=== PATIENT | female | born 1930 | race Caucasian/White ===

== ENCOUNTER → 2016-11-03 | Outpatient (CLI) | payer MEDICARE, BC ==
[~2016-11-03] MED LIST: ACHD5005 PO; ALPR.5T PO; AMLO5TAB2 PO; ASCO100T6 PO; ASP325TEC PO; ASP81TEC PO; ASPI-933 PO; ASPI325T PO; CALC-20 PO; CALC-6 PO; CHOL2000 PO; CLOP75TA PO; CYAN100053 IJ; ESCT10T PO; FAMO10TA43 PO; FAMO20TA5 PO; FLUT16SP22 NS; HYDR-2997 PO; IBAN3DIS2 IV; LEVO88TA26 PO; LVT.1T PO; MTP25TSR PO; MULT1CAP27 PO; NF-FLON16G; NITR0.6T5 PO; NTR.4SL SL; OLME20TA21 PO; OLME40TA14 PO; OMEP40CA36 PO; OXYC-12 PO; PANT40SU PO; PNT40TEC PO; POLY17PO23 PO; SENN1TAB76 PO; SUCR1TAB PO; VITA1CAP59 PO; VITAMIN B12 INJ; VITAMIN C PO; [UNRECOGNIZED DRUG - OTHER] PO
--- NOTE | 2016-11-05 09:08 | ECHOCARDIOGRAPHY REPORT ---
DATE OF SERVICE: 11/03/2016 ECHOCARDIOGRAPHY REPORT ORDERING PHYSICIAN: Dr. Nogueira. PRIMARY CARE PHYSICIAN: Dr. Ponce. CLINICAL DIAGNOSIS: Near syncope. MEASUREMENTS: LV diameter diastolic 4. IVS thickness, diastolic 1.5. LVPW thickness, diastolic 1.3. Left atrium 3.6. Aortic root 3.6. DESCRIPTION: Two dimensional echocardiography shows normal global left ventricular systolic function with normal regional wall motion. Aortic, mitral and tricuspid valve leaflets show good leaflet excursion. There is mild aortic valve sclerosis and calcification. There is no significant pericardial effusion. Doppler imaging shows mild mitral and tricuspid regurgitation. There is no Doppler evidence of any significant valvular stenosis. Pulmonary artery systolic pressure is estimated to be approximately 35 mmHg. Mitral inflow is consistent with grade I diastolic dysfunction of the left ventricle. There is no evidence of any significant intracardiac shunt on this transthoracic echocardiographic study. Inferior vena cava is of normal size and appears mostly collapsed on this study. CONCLUSIONS: 1. Normal global left ventricular systolic function with an ejection fraction of approximately 65%. 2. Mild concentric left ventricular hypertrophy. 3. Mild mitral and tricuspid regurgitation. 4. Mild diastolic dysfunction of left ventricle. 5. Mild aortic valve sclerosis without evidence of significant valvular stenosis. 6. Pulmonary artery systolic pressure is estimated to be 30 to 35 mmHg. Job ID: [id number] DocumentID: [id number] Dictated Date: 11/04/2016 17:06:43 Network Security Consultant Date: 11/04/2016 22:58:19 Dictated By: RONNIE NOGUEIRA MD, MA, FACP, FACC,
== END ==
LOC: CARD 08:05
PROVIDERS: ATTEND Internal Medicine Cardiovascular Disease
DX: R55 Syncope and collapse (principal); I25.10 Atherosclerotic heart disease of native coronary artery without angina pectoris; I65.23 Occlusion and stenosis of bilateral carotid arteries; I10 Essential (primary) hypertension; I95.1 Orthostatic hypotension
CPT/HCPCS: 93306

== ENCOUNTER 2016-11-12 06:46 | Observation (INO) | payer MEDICARE, BC ==
[~2016-11-12] VITALS: Ht 165.1 cm; Wt 69.1 kg
[2016-11-12] VITALS (7 sets, daily range): BP systolic 123–184; BP diastolic 60–77
[2016-11-12 06:59] LABS: BASOPHILS % (AUTO) 0 % (0-10); EOSINOPHILS # (AUTO) 0.1 10^3/uL (0.0-0.3); EOSINOPHILS % (AUTO) 2 % (0-10); LYMPHOCYTES # (AUTO) 1.1 X 10^3 (1.0-4.0); LYMPHOCYTES % (AUTO) 19 % (12-44); MEAN CORPUSCULAR HEMOGLOBIN 31 PG (25-34); MEAN CORPUSCULAR HGB CONC 34 G/DL (32-36); MEAN CORPUSCULAR VOLUME 92 FL (80-99); MEAN PLATELET VOLUME 10.2 FL (7.4-10.4); MONOCYTES # (AUTO) 0.6 X 10^3 (0.0-1.0); MONOCYTES % (AUTO) 10 % (0-12); NEUTROPHILS # (AUTO) 3.9 X 10^3 (1.8-7.8); NEUTROPHILS % (AUTO) 68 % (42-75); PLATELET COUNT 292 10^3/uL (130-400); RED BLOOD COUNT 4.44 10^6/uL (4.35-5.85); RED CELL DISTRIBUTION WIDTH 13.5 % (10.0-14.5); WHITE BLOOD COUNT 5.7 10^3/uL (4.3-11.0)
--- NOTE | 2016-11-12 07:00 | ED General ---
General Chief Complaint: Dizziness/Syncope Stated Complaint: LIGHTHEADED,DIZZY Source of Information: Patient, EMS History of Present Illness Time Seen by Provider: 06:50 Initial Comments 85-year-old female comes in with "lightheadedness and dizziness" patient reports that last night she just felt a little off balance. Patient denies any chest pain, she denies any altered mental status. She denied any focal weakness. Patient does report in about 8 days ago her blood pressure medication Benicar was stopped due to concerns for to low blood pressure. Patient felt like her blood pressure was a little high this morning with EMS stating that was in the 190s. Patient denies any headache, vision changes, chest pain, nausea vomiting or urinary symptoms. ems reports pt was walking around at her house upon arrival but was utilizing a cane. Allergies and Home Medications Allergies Coded Allergies: Mctanfo-Hea-Iqe Reductase Inhibitor (Verified Allergy, Unknown, 01/30/14) alendronate sodium (Verified Allergy, Unknown, 01/30/14) ezetimibe (Verified Allergy, Unknown, 01/30/14) hydrochlorothiazide (Verified Allergy, Unknown, 01/30/14) Home Medications Albuterol Sulfate 18 Gm Hfa.aer.ad, 2 PUFF IH Q4H PRN for SHORTNESS OF BREATH, ( Reported) Alprazolam 0.5 Mg Tablet, 0.5 MG PO BID, (Reported) Ascorbate Calcium 500 Mg Tablet, 500 MG PO DAILY, (Reported) Aspirin 81 Mg Tablet.dr, 81 MG PO DAILY@1200, (Reported) Calcium Carbonate 500 Mg Tablet, 500 MG PO DAILY, (Reported) Cholecalciferol 2,000 Unit Capsule, 2,000 UNIT PO DAILY, (Reported) Cyanocobalamin 1,000 Mcg/Ml Vial, 1,000 MCG IJ monthly, (Reported) Escitalopram Oxalate 20 Mg Tablet, 20 MG PO DAILY, (Reported) Famotidine 10 Mg Tablet, 10 MG PO DAILY, (Reported) Fluticasone Propionate 16 Gm [place].susp, 1 SPRAY NSEACH DAILY PRN for ALLERGIES, (Reported) Levothyroxine Sodium 100 Mcg Tablet, 100 MCG PO Q48H, (Reported) ALTERNATES WITH LEVOTHYROXINE 88 MCG Levothyroxine Sodium 88 Mcg Tablet, 88 MCG PO Q48H, (Reported) ALTERNATES WITH LEVOTHYROXINE 100 MCG EVERY OTHER DAY Nitroglycerin 0.4 Mg Subl, 0.4 MG SL PRN, (Reported) prn chest pain take 1 tablet q 5 minutes x 3 doses Pantoprazole Sodium 40 Mg Tablet.dr, 40 MG PO HS, (Reported) Vitamin B Complex 1 Cap Capsule, 1 CAP PO DAILY, (Reported) [Laney] , 1 TAB PO DAILY, (Reported) Constitutional: No chills, dizziness, No fever EENTM: hearing loss (uses hearing aids, no acute change ) Respiratory: No cough, No dyspnea on exertion, No orthopnea Cardiovascular: No chest pain, No edema Gastrointestinal: no symptoms reported Genitourinary: no symptoms reported Musculoskeletal: muscle weakness Skin: no symptoms reported Psychiatric/Neurological: Anxiety Past Zyituuq-Couval-Qyflpk Hx Patient Social History Recent Foreign Travel: No Contact w/Someone Who Travel: No Immunizations Up To Date Date of Pneumonia Vaccine: Feb 13, 2010 Date of Influenza Vaccine: Mar 15, 2012 Surgeries HX Surgeries: Yes (STENTS) Respiratory Hx Respiratory Disorders: Yes (sob) Cardiovascular Hx Cardiac Disorders: Yes Neurological Hx Neurological Disorders: No Reproductive System Hx Reproductive Disorders: No Genitourinary Hx Genitourinary Disorders: No Gastrointestinal Hx Gastrointestinal Disorders: Yes Gastrointestinal Disorders: Gastroesophageal Reflux Musculoskeletal Hx Musculoskeletal Disorders: Yes Musculoskeletal Disorders: Arthritis Endocrine Hx Endocrine Disorders: Yes Endocrine Disorders: Hyperthyroidism HEENT HX ENT Disorders: Yes Hearing Impairment: Bilateral Hearing Aide Cancer Hx Cancer: No Psychosocial Hx Psychiatric Problems: Yes Behavioral Health Disorders: Anxiety Integumentary HX Skin/Integumentary Disorder: No Blood Transfusions Hx Blood Disorders: No Physical Exam Vital Signs Vital Sign - Last 12Hours 11/12/16 06:48 Temp 97.2 Pulse 53 Resp 16 B/P (MAP) 193/93 Pulse Ox 96 O2 Delivery Room Air Capillary Refill : General Appearance: No Apparent Distress, WD/WN Eyes: Bilateral Eye EOMI, Bilateral Eye Normal Inspection, Bilateral Eye PERRL HEENT: PERRL/EOMI, Pharynx Normal Neck: Full Range of Motion, Non Tender, Supple Respiratory: Lungs Clear, Normal Breath Sounds, No Accessory Muscle Use, No Respiratory Distress Cardiovascular: No Edema, Normal Peripheral Pulses, Bradycardia Gastrointestinal: Normal Bowel Sounds, Non Tender, Soft Extremity: Normal Capillary Refill Neurologic/Psychiatric: Oriented x3, No Motor/Sensory Deficits, Normal Mood/ Affect, glass crusher II-XII Norm as Tested, Other (NIH stroke scale of 0) Skin: Normal Color, Warm/Dry Lymphatic: No Adenopathy Progress/Results/Core Measures Results/Orders Lab Results Laboratory Tests Test 11/12/16 06:52 11/12/16 09:45 Range/Units White Blood Count 5.7 4.3-11.0 10^3/uL Red Blood Count 4.44 4.35-5.85 10^6/uL Hemoglobin 13.8 11.5-16.0 G/DL Hematocrit 41 35-52 % Mean Corpuscular Volume 92 80-99 FL Mean Corpuscular Hemoglobin 31 25-34 PG Mean Corpuscular Hemoglobin Concent 34 32-36 G/DL Red Cell Distribution Width 13.5 10.0-14.5 % Platelet Count 292 130-400 10^3/uL Mean Platelet Volume 10.2 7.4-10.4 FL Neutrophils (%) (Auto) 68 42-75 % Lymphocytes (%) (Auto) 19 12-44 % Monocytes (%) (Auto) 10 0-12 % Eosinophils (%) (Auto) 2 0-10 % Basophils (%) (Auto) 0 0-10 % Neutrophils # (Auto) 3.9 1.8-7.8 X 10^3 Lymphocytes # (Auto) 1.1 1.0-4.0 X 10^3 Monocytes # (Auto) 0.6 0.0-1.0 X 10^3 Eosinophils # (Auto) 0.1 0.0-0.3 10^3/uL Basophils # (Auto) 0.0 0.0-0.1 10^3/uL Sodium Level 137 135-145 MMOL/L Potassium Level 3.9 3.6-5.0 MMOL/L Chloride Level 102 98-107 MMOL/L Carbon Dioxide Level 23 21-32 MMOL/L Anion Gap 12 5-14 MMOL/L Blood Urea Nitrogen 17 7-18 MG/DL Creatinine 0.90 0.60-1.30 MG/DL Estimat Glomerular Filtration Rate 59 BUN/Creatinine Ratio 19 Glucose Level 137 H 70-105 MG/DL Calcium Level 9.4 8.5-10.1 MG/DL Total Bilirubin 1.1 H 0.1-1.0 MG/DL Aspartate Amino Transf (AST/SGOT) 21 5-34 U/L Alanine Aminotransferase (ALT/SGPT) 17 0-55 U/L Alkaline Phosphatase 86 40-136 U/L Troponin I < 0.30 <0.30 NG/ML Total Protein 7.0 6.4-8.2 G/DL Albumin 4.0 3.2-4.5 G/DL Urine Color YELLOW Urine Clarity CLEAR Urine pH 8 5-9 Urine Specific [place] 1.015 L 1.016-1.022 Urine Protein NEGATIVE NEGATIVE Urine Glucose (UA) NEGATIVE NEGATIVE Urine Ketones NEGATIVE NEGATIVE Urine Nitrite NEGATIVE NEGATIVE Urine Bilirubin NEGATIVE NEGATIVE Urine Urobilinogen NORMAL NORMAL MG/DL Urine Leukocyte Esterase NEGATIVE NEGATIVE Urine RBC (Auto) 2+ H NEGATIVE Urine RBC 0-2 /HPF Urine WBC RARE /HPF Urine Squamous Epithelial Cells 0-2 /HPF Urine Crystals NONE /LPF Urine Bacteria TRACE /HPF Urine Casts NONE /LPF Urine Mucus NEGATIVE /LPF Urine Culture Indicated NO My Orders Orders - J CARLOS HESS L DO Cbc With Automated Diff (11/12/16 06:52) Comprehensive Metabolic Panel (11/12/16 06:52) Troponin I (11/12/16 06:52) Ua Culture If Indicated (11/12/16 06:52) Chest 1 View, Ap/Pa Only (11/12/16 06:52) Ekg Tracing (11/12/16 06:52) Accucheck Stat ONCE (11/12/16 06:52) Vital Signs-Stroke Q1H (11/12/16 06:52) Ct Head Wo-R/O Stroke (11/12/16 06:52) Intake & Output 06,14,22 (11/12/16 06:52) Monitor-Rhythm Ecg Trace Only (11/12/16 06:52) Dysphagia Screening Tool (11/12/16 06:52) Lisinopril Tablet (Zestril Tablet) (11/12/16 07:45) Meclizine Tablet (Antivert Tablet) (11/12/16 08:00) Meclizine Tablet (Antivert Tablet) (11/12/16 07:51) Alprazolam Tablet (Xanax Tablet) (11/12/16 08:15) Alprazolam Tablet (Xanax Tablet) (11/12/16 08:11) General/Regular (11/12/16 Breakfast) Amlodipine Tablet (Norvasc Tablet) (11/12/16 10:00) Medications Given in ED Current Medications Medications Dose Ordered Sig/Christopher Route Start Time Stop Time Status Last Admin Dose Admin Alprazolam 0.25 mg ONCE ONCE PO 11/12/16 08:15 11/12/16 08:16 DC 11/12/16 08:16 0.25 MG Lisinopril 5 mg ONCE ONCE PO 11/12/16 07:45 11/12/16 07:46 DC 11/12/16 07:57 5 MG Meclizine HCl 25 mg STK-MED ONCE .ROUTE 11/12/16 07:51 11/12/16 07:57 DC 11/12/16 07:57 25 MG Vital Signs/I&O Vital Sign - Last 12Hours 11/12/16 11/12/16 11/12/16 11/12/16 06:48 10:11 10:30 12:00 Temp 97.2 98.4 98.4 Pulse 53 54 56 51 Resp 16 16 16 20 B/P (MAP) 193/93 170/60 148/70 Pulse Ox 96 96 96 97 O2 Delivery Room Air Progress Note : Time: 09:48 Progress Note Patient was attempted ambulation 2. Upon both ambulations after treatment she remained unsteady with difficulty with balance and falling backwards. At this time decision was made to admit for observation and MRI to rule out any further pathology. Discussed with Dr. iRce and Dr. Vizcaino. She will be given amlodipine 10 mg by mouth now for her blood pressure. With further management to come upon the floor. ECG Initial ECG Impression Date: November 12, 2016 Initial ECG Impression Time: 07:19 Initial ECG Rhythm: S.Neal Initial ECG Impression: Sinus Bradycardia Initial ECG Comparisson: Unchanged (01/31/2014) Diagnostic Imaging Diagonstic Imaging: CT Comments CT HEAD WO-R/O STROKE CT head without contrast. INDICATION: Dizziness. FINDINGS: There is no intracranial hemorrhage. Periventricular and deep white hypodensities are seen compatible with chronic microvascular ischemic changes. There is no hydrocephalus. No extra-axial fluid collection is seen. The calvarium, the paranasal sinuses and orbits visualized portions appear grossly unremarkable. IMPRESSION: No intracranial hemorrhage. White matter findings are likely secondary to chronic microvascular ischemic changes. CHEST 1 VIEW, AP/PA ONLY INDICATION: Lightheaded, dizzy. COMPARISON: 01/30/2014. FINDINGS: Stable cardiomegaly. No focal pulmonic consolidation. No pleural effusion or pneumothorax. Please note posterior lower lobes are poorly evaluated by portable radiography. Stable atherosclerotic aorta. Normal pulmonary vasculature. Soft tissue anchors in the right humeral head are compatible with prior rotator cuff repair. IMPRESSION: 1. No acute cardiopulmonary process by portable radiography. 2. Stable cardiomegaly. Reviewed: Reviewed by Me Departure Communication Communication discussed pt with Dr salmeron and Charis, will admit for obs with MRI and give amlodapine 10 mg x 1 for blood pressure. Impression Impression: Primary Impression: Dizziness of unknown cause Additional Impressions: Gait instability Hypertension Qualified Codes: I10 - Essential (primary) hypertension Disposition: ADMITTED INPATIENT Condition: Stable/Unchanged Departure-Patient Inst. Referrals: ITZEL LENNON DO (PCP/Family) Primary Care Physician J CARLOS HESS DO November 12, 2016 07:00
[2016-11-12 07:20] LABS: ALANINE AMINOTRANSFERASE 17 U/L (0-55); ANION GAP 12 MMOL/L (5-14); ASPARTATE AMINO TRANSFERASE 21 U/L (5-34); BILIRUBIN,TOTAL 1.1 MG/DL (0.1-1.0); BLOOD UREA NITROGEN 17 MG/DL (7-18); BUN/CREATININE RATIO 19; CALCIUM 9.4 MG/DL (8.5-10.1); CARBON DIOXIDE 23 MMOL/L (21-32); CHLORIDE 102 MMOL/L (98-107); GFR ESTIMATED 59; GLUCOSE 137 MG/DL (70-105); POTASSIUM 3.9 MMOL/L (3.6-5.0); SODIUM 137 MMOL/L (135-145)
[2016-11-12 07:27] LABS: TROPONIN I < 0.30 NG/ML (<0.30)
[2016-11-12] MEDS ORDERED: lisINopril 5 MG (PRINIVIL) TABLET PO ONE (07:45)
[2016-11-12] MEDS ORDERED: MECLIZINE 25 MG (ANTIVERT) TAB ONE (07:51)
[2016-11-12] MEDS ORDERED: MECLIZINE 25 MG (ANTIVERT) TAB PO ONE (08:00)
--- NOTE | 2016-11-12 08:06 | Diagnostic Imaging Report ---
INDICATION: Lightheaded, dizzy. COMPARISON: 01/30/2014. FINDINGS: Stable cardiomegaly. No focal pulmonic consolidation. No pleural effusion or pneumothorax. Please note posterior lower lobes are poorly evaluated by portable radiography. Stable atherosclerotic aorta. Normal pulmonary vasculature. Soft tissue anchors in the right humeral head are compatible with prior rotator cuff repair. IMPRESSION: 1. No acute cardiopulmonary process by portable radiography. 2. Stable cardiomegaly. Dictated by: Dictated on workstation # [id number]
--- NOTE | 2016-11-12 08:09 | Diagnostic Imaging Report ---
CT head without contrast. INDICATION: Dizziness. FINDINGS: There is no intracranial hemorrhage. Periventricular and deep white hypodensities are seen compatible with chronic microvascular ischemic changes. There is no hydrocephalus. No extra-axial fluid collection is seen. The calvarium, the paranasal sinuses and orbits visualized portions appear grossly unremarkable. IMPRESSION: No intracranial hemorrhage. White matter findings are likely secondary to chronic microvascular ischemic changes. Dictated by: Dictated on workstation # [id number]
[2016-11-12] MEDS ORDERED: ALPRAZolam 0.25 MG (XANAX) TAB ONE (08:11)
[2016-11-12] MEDS ORDERED: ALPRAZolam 0.25 MG (XANAX) TAB PO ONE (08:15)
[2016-11-12 09:52] LABS: BILIRUBIN,URINE NEGATIVE (NEGATIVE); KETONES,URINE NEGATIVE (NEGATIVE); LEUKOCYTE ESTERASE ,URINE NEGATIVE (NEGATIVE); NITRITE,URINE NEGATIVE (NEGATIVE); PH,URINE 8 (5-9); PROTEIN,URINE NEGATIVE (NEGATIVE); UROBILINOGEN,URINE NORMAL (NORMAL)
[2016-11-12] MEDS ORDERED: amLODIPine 10 MG (NORVASC) TAB PO ONE (10:00)
[2016-11-12 10:12] LABS: SQUAMOUS EPITHELIAL CELL,UR 0-2 /HPF; WBC,URINE RARE /HPF
[2016-11-12] MEDS ORDERED: ALPR0.5T7 PO (11:08)
[2016-11-12] MEDS ORDERED: FLUT16SP22 NSEACH (11:08)
[2016-11-12] MEDS ORDERED: LEVO100T7 PO (11:08)
[2016-11-12] MEDS ORDERED: ASCO-262 PO (11:08)
[2016-11-12] MEDS ORDERED: CALC-823 PO (11:08)
[2016-11-12] MEDS ORDERED: PANT40TA3 PO (11:08)
[2016-11-12] MEDS ORDERED: ESCI20TA45 PO (11:08)
[2016-11-12] MEDS ORDERED: ALLEGRA PO (11:08)
[2016-11-12] MEDS ORDERED: ALBU18HF2 IH (11:08)
[2016-11-12] MEDS ORDERED: LEVO88TA54 PO (11:08)
[2016-11-12] MEDS ORDERED: GADOBUTROL 7.5 MMOL/7.5 ML (GADAVIST) VIAL IV ONE (13:00)
[2016-11-12] MEDS ORDERED: CATHETER FLUSH 10 ML SYR IV PRN (13:45)
--- NOTE | 2016-11-12 13:57 | Diagnostic Imaging Report ---
PROCEDURE: MR imaging of the brain with and without contrast. TECHNIQUE: Multiplanar, multisequence MR imaging of the brain was performed with and without contrast. INDICATION: Dizziness, weakness. 7 mL of Gadovist is administered intravenously. FINDINGS: There is no diffusion restriction to suggest an acute infarct or other diffusion abnormality. There is prominent periventricular and deep white matter T2 hyperintense signal in the white matter not associated with mass effect or postcontrast enhancement suggestive of chronic microvascular ischemic changes. No brain edema or enhancing mass. There is no hydrocephalus. No extra-axial fluid collection is seen. No enhancing lesion within the brain or extra-axial space. The brainstem demonstrates mild white matter signal abnormalities similar to the supratentorial white matter lesions also most likely of the basis of chronic microvascular ischemic changes and Wallerian degeneration. No enhancing lesion. The pituitary gland is normal in size. No hypothalamic or pineal region mass. The central vascular flow-voids appear grossly unremarkable. The internal auditory canals and inner ear structures appear unremarkable. Mucosal thickening along the middle and inferior turbinates narrowing the nasal passages is seen. The anterior and middle ethmoidal air cells also demonstrate mild mucosal thickening. IMPRESSION: White matter findings are suggestive of chronic microvascular ischemic changes. No acute infarct or enhancing mass. Dictated by: Dictated on workstation # [id number]
[2016-11-12] MEDS: CATHETER FLUSH 10 ML SYR IV SCH ×2 (14:36→21:18)
--- NOTE | 2016-11-12 15:26 | Consultation-Cardiology ---
HPI-Cardiology Cardiology Consultation: Date of Consultation 11/12/16 Date of Admission 11-12-16 Attending Physician Dedrick Mitchell MD Admitting Physician Sravanthi Ponce DO Consulting Physician Terri Nogueira MD HPI: Chief Complaint: Dizziness Ms. Rea is an 85 year old female admitted to 426 from the ED. She reports last evening she "fell apart". She states she had a sudden onset of dizziness and weakness. She denies any syncope or near syncope, just profound dizziness. She states it persisted through the night. She states she felt ok if she sat still. She reports chronic shortness of breath which is unchanged. No vision changes. No n/v/d. No fever or chills. No LE edema. She states she was able to ambulate, but only if she was able to hold on to something to steady her. She states she had a headache. She sat up on the side of the bed for physical exam and she became dizzy and an overwhelming weakness. No diaphoresis. She states she feels a great deal of pressure at the back of her head and into her neck. Review of Systems-Cardiology Review of Systems Constitutional: As described under HPI Eyes: No blurred vision, No drainage, No pain, No vision change Ears/Nose/Throat: No ear discharge, No ear pain, No nasal drainage, No ulcerations Respiratory: As described under HPI Cardiovascular: As described under HPI Gastrointestinal: No constipation, No diarrhea, No nausea, No vomiting, No stool coloration changes Genitourinary: No dysuria, No discharge, No frequency, No hematuria, No urgency Skin: No rash, No skin related problems, No ulcerations Psychiatric/Neurological: headache, No anxiety, No depression, No focal weakness, No seizure, No syncope Hematologic: No bleeding abnormalities SAM-Pwbnwl-Cxwong Hx Patient Social History Alcohol Use: Denies Use Recreational Drug Use: No Smoking Status: Never a Smoker Recent Foreign Travel: No Recent Infectious Disease Expo: No Hospitalization with Isolation: Denies Physical Abuse Screen: No Sexual Abuse: No Immunizations Up To Date Date of Pneumonia Vaccine: Feb 13, 2010 Date of Influenza Vaccine: Mar 15, 2012 Past Medical History PMH As described under Assessment. Allergies and Home Medications Allergies Coded Allergies: Melvcwv-Gmv-Gps Reductase Inhibitor (Verified Allergy, Unknown, 01/30/14) alendronate sodium (Verified Allergy, Unknown, 01/30/14) ezetimibe (Verified Allergy, Unknown, 01/30/14) hydrochlorothiazide (Verified Allergy, Unknown, 01/30/14) Home Medications Albuterol Sulfate 18 Gm Hfa.aer.ad, 2 PUFF IH Q4H PRN for SHORTNESS OF BREATH, ( Reported) Alprazolam 0.5 Mg Tablet, 0.5 MG PO BID, (Reported) Ascorbate Calcium 500 Mg Tablet, 500 MG PO DAILY, (Reported) Aspirin 81 Mg Tablet.dr, 81 MG PO DAILY@1200, (Reported) Calcium Carbonate 500 Mg Tablet, 500 MG PO DAILY, (Reported) Cholecalciferol 2,000 Unit Capsule, 2,000 UNIT PO DAILY, (Reported) Cyanocobalamin 1,000 Mcg/Ml Vial, 1,000 MCG IJ monthly, (Reported) Escitalopram Oxalate 20 Mg Tablet, 20 MG PO DAILY, (Reported) Famotidine 10 Mg Tablet, 10 MG PO DAILY, (Reported) Fluticasone Propionate 16 Gm [place].susp, 1 SPRAY NSEACH DAILY PRN for ALLERGIES, (Reported) Levothyroxine Sodium 100 Mcg Tablet, 100 MCG PO Q48H, (Reported) ALTERNATES WITH LEVOTHYROXINE 88 MCG Levothyroxine Sodium 88 Mcg Tablet, 88 MCG PO Q48H, (Reported) ALTERNATES WITH LEVOTHYROXINE 100 MCG EVERY OTHER DAY Nitroglycerin 0.4 Mg Subl, 0.4 MG SL PRN, (Reported) prn chest pain take 1 tablet q 5 minutes x 3 doses Pantoprazole Sodium 40 Mg Tablet.dr, 40 MG PO HS, (Reported) Vitamin B Complex 1 Cap Capsule, 1 CAP PO DAILY, (Reported) [Laney] , 1 TAB PO DAILY, (Reported) Physical Exam-Cardiology Physical Exam Vital Signs/I&O Vital Sign - Last 12Hours 11/12/16 11/12/16 11/12/16 11/12/16 06:48 10:11 10:30 11:00 Temp 97.2 98.4 Pulse 53 54 56 Resp 16 16 16 B/P (MAP) 193/93 170/60 Pulse Ox 96 96 96 97 O2 Delivery Room Air 11/12/16 11/12/16 11/12/16 11/12/16 12:00 15:26 16:35 16:42 Temp 98.4 97.9 Pulse 51 57 Resp 20 20 B/P (MAP) 148/70 167/77 158/68 (98) 184/64 (104) Pulse Ox 97 97 11/12/16 16:44 B/P (MAP) 123/66 (85) Capillary Refill : Less Than 3 Seconds Constitutional: appears stated age, No apparent distress, well-developed, well- nourished HEENT: PERRL, No discharge, hearing is well preserved, oral hygience is good, No ulceration, No xanthelasmas are seen Neck: No carotid bruit, carotid pulses are 2 + bilaterally Respiratory: No accessory muscle use, No respiratory distress, chest expansion is symmetric, chest is bilaterally symmetric, lungs clear to auscultation Cardiovascular: regular rate-rhythm, No JVD, S1 and S2 Gastrointestinal: No tender, soft, audible bowel sounds, No spleenomegaly Extremities: No clubbing, No cyanosis, No significant edema Neurologic/Psychiatric: alert, oriented x 3, power is 5/5 both on sides Skin: No rash, No ulcerations Data Review Labs Laboratory Tests 11/12/16 06:52: White Blood Count 5.7, Red Blood Count 4.44, Hemoglobin 13.8, Hematocrit 41, Mean Corpuscular Volume 92, Mean Corpuscular Hemoglobin 31, Mean Corpuscular Hemoglobin Concent 34, Red Cell Distribution Width 13.5, Platelet Count 292, Mean Platelet Volume 10.2, Neutrophils (%) (Auto) 68, Lymphocytes (%) (Auto) 19 , Monocytes (%) (Auto) 10, Eosinophils (%) (Auto) 2, Basophils (%) (Auto) 0, Neutrophils # (Auto) 3.9, Lymphocytes # (Auto) 1.1, Monocytes # (Auto) 0.6, Eosinophils # (Auto) 0.1, Basophils # (Auto) 0.0, Sodium Level 137, Potassium Level 3.9, Chloride Level 102, Carbon Dioxide Level 23, Anion Gap 12, Blood Urea Nitrogen 17, Creatinine 0.90, Estimat Glomerular Filtration Rate 59, BUN/ Creatinine Ratio 19, Glucose Level 137H, Calcium Level 9.4, Total Bilirubin 1.1H , Aspartate Amino Transf (AST/SGOT) 21, Alanine Aminotransferase (ALT/SGPT) 17, Alkaline Phosphatase 86, Troponin I < 0.30, Total Protein 7.0, Albumin 4.0 11/12/16 09:45: Urine Color YELLOW, Urine Clarity CLEAR, Urine pH 8, Urine Specific [place] 1.015L, Urine Protein NEGATIVE, Urine Glucose (UA) NEGATIVE, Urine Ketones NEGATIVE, Urine Nitrite NEGATIVE, Urine Bilirubin NEGATIVE, Urine Urobilinogen NORMAL, Urine Leukocyte Esterase NEGATIVE, Urine RBC (Auto) 2+H, Urine RBC 0-2, Urine WBC RARE, Urine Squamous Epithelial Cells 0-2, Urine Crystals NONE, Urine Bacteria TRACE, Urine Casts NONE, Urine Mucus NEGATIVE, Urine Culture Indicated NO Radiology NAME: GOYO REA [facility] REC#: [id number] PT STATUS: REG ER : 1930 PHYSICIAN: J CARLOS HESS DO ADMIT DATE: 11/12/16/ER Signed Date of Exam: 11/12/16 CT HEAD WO-R/O STROKE CT head without contrast. INDICATION: Dizziness. FINDINGS: There is no intracranial hemorrhage. Periventricular and deep white hypodensities are seen compatible with chronic microvascular ischemic changes. There is no hydrocephalus. No extra-axial fluid collection is seen. The calvarium, the paranasal sinuses and orbits visualized portions appear grossly unremarkable. IMPRESSION: No intracranial hemorrhage. White matter findings are likely secondary to chronic microvascular ischemic changes. Dictated by: Dictated on workstation # [id number] Dict: 11/12/16 0804 Trans: 11/12/16 08 Interpreted by: RENZO BRANTLEY MD Electronically signed by: RENZO BRANTLEY MD 11/12/1609 NAME: GOYO REA [facility] REC#: [id number] PT STATUS: ADM Leandro : 1930 PHYSICIAN: J CARLOS HESS DO ADMIT DATE: 11/12/16/4TH Signed Date of Exam: 11/12/16 CHEST 1 VIEW, AP/PA ONLY INDICATION: Lightheaded, dizzy. COMPARISON: 01/30/2014. FINDINGS: Stable cardiomegaly. No focal pulmonic consolidation. No pleural effusion or pneumothorax. Please note posterior lower lobes are poorly evaluated by portable radiography. Stable atherosclerotic aorta. Normal pulmonary vasculature. Soft tissue anchors in the right humeral head are compatible with prior rotator cuff repair. IMPRESSION: 1. No acute cardiopulmonary process by portable radiography. 2. Stable cardiomegaly. Dictated by: Dictated on workstation # [id number] Dict: 11/12/16 0758 Trans: 11/12/16 1133 Interpreted by: JAKE WU MD Electronically signed by: JAKE WU MD 11/12/16 1133 NAME: GOYO REA [facility] REC#: [id number] PT STATUS: ADM Leandro : 1930 PHYSICIAN: DEDRICK MITCHELL MD ADMIT DATE: 11/12/16/ Draft Date of Exam:11/12/16 MRI BRAIN W/WO CONTRAST PROCEDURE: MR imaging of the brain with and without contrast. TECHNIQUE: Multiplanar, multisequence MR imaging of the brain was performed with and without contrast. INDICATION: Dizziness, weakness. 7 mL of Gadovist is administered intravenously. FINDINGS: There is no diffusion restriction to suggest an acute infarct or other diffusion abnormality. There is prominent periventricular and deep white matter T2 hyperintense signal in the white matter not associated with mass effect or postcontrast enhancement suggestive of chronic microvascular ischemic changes. No brain edema or enhancing mass. There is no hydrocephalus. No extra-axial fluid collection is seen. No enhancing lesion within the brain or extra-axial space. The brainstem demonstrates mild white matter signal abnormalities similar to the supratentorial white matter lesions also most likely of the basis of chronic microvascular ischemic changes and [place]ian degeneration. No enhancing lesion. The pituitary gland is normal in size. No hypothalamic or pineal region mass. The central vascular flow-voids appear grossly unremarkable. The internal auditory canals and inner ear structures appear unremarkable. Mucosal thickening along the middle and inferior turbinates narrowing the nasal passages is seen. The anterior and middle ethmoidal air cells also demonstrate mild mucosal thickening. IMPRESSION: White matter findings are suggestive of chronic microvascular ischemic changes. No acute infarct or enhancing mass. Dictated on workstation # [id number] Dict: 11/12/16 1346 Trans: 11/12/16 1357 [id number] ECG Impression ECG Initial ECG Rhythm: S.Neal A/P-Cardiology Assessment/Admission Diagnosis Weakness, malaise and dizziness of undetermined etiology MRI brain on 11/12/16: chronic microvascular changes, no acute findings H/o near-syncope of undetermined etiology: no evidence of significant arrhythmia , so far, on ILR monitoring Carotid u/s of 06-24-16 showed bilateral mild to moderate dz Chronic generalized fatigue and malaise that improved after reduction in benzodiazepines Chronic lower back discomfort. Previous episode of syncope likely due to postural hypotension, had improved with reduction in her medications. Coronary artery disease with history of stenting of the ostial and proximal right coronary artery and stenting of the left circumflex obtuse marginal. Last cardiac catheterization was carried on January 31, 2014. It showed moderate CAD. Widely patent stents in the left CX, OM system. Patent stent in the ostial and proximal RCA lorie mild in stent restenosis. There is a patent stent in the mid RCA. The distal RCA has 40-50% stenosis, this is hemodynamically not significant. A small caliber PDA branch is occluded at its ostium. LVEF 55 %. Her prior history is that she underwent stenting of the ostial and proximal right coronary with Promus 3 x 15-mm stent in October 2010 and stenting of the mid right coronary with Promus 3 x 18-,mm stent in October 2010. In mid November 2010, she underwent percutaneous intervention to the left circumflex with Promus 2.5 x 23-mm and 2.75 x 28-mm stents to an obtuse marginal. In April 2011, she underwent balloon angioplasty for stent restenosis of the ostial right coronary. Normal global left ventricular systolic function with an ejection fraction of 50 % and normal left ventricular end-diastolic pressure per cardiac catheterization of December 2011. Echo of 09/18/14 showed LVEF 55-60%, diastolic dysfunction of LV and PASP 30-35 mmHg Hypertension, labile. Hyperlipidemia, but the patient is intolerant to statins. Chronic severe gastroesophageal reflux. Hypothyroidism being treated with thyroid replacement therapy. Degenerative joint disease. S/p TKR in September 2014 Osteoporosis. Chronic back pain. Chronic weakness and lack of stamina. Multiple medication intolerances. History of a fall in February 2012, leading to left hip surgery. Right shoulder surgery per Dr. Rivero in September 2012 H/o hypothyroidism treated with Synthroid by Dr Ponce. Blood work of Mar 2013 shows mild hyperthyroidism Hyponatremia, diagnosed on blood work of 10/18/[address] Ponce, being managed by Dr Ponce. No hyponatremia on blood work of 03/20/15 Discussion and Recomendations Difficult management issue. She has been reporting progressive dizziness and weakness. At the time of her last office visit her antihypertensive regimen was reduced d/t symptoms suggestive of orthostatic hypotension. She reports continued dizziness with recent worsening of her symptoms. Her blood pressure was elevated on admission. Norvasc has been given along with low dose MELISSA (-). BP has improved. She has chronic sinus bradycardia. We will avoid BB as this could lead to worsening bradycardia. We will resume Benicar BP control since discontinuation of it has not resulted in improved symptoms and her BP is elevated. Orthostatic v/s today. Compression stockings to be worn during the day and off at hs. Continue tele to evaluate for possible arrhythmia, although ILR which has been present since 2014 has shown none. Monitor lab closely. Continue PT. Further recommendations will be based on her hospital course. We would like to thank the medical services for this consult. This consult is being scribed by Demi Charles APRN on behalf of Dr. Nogueira after discussion regarding plan of care. Clinical Quality Measures DVT/VTE Risk/Contraindication: Risk Factor Score Per Nursin RFS Level Per Nursing on Admit: 2=Moderate Physician Assessment Physician Assessment Lungs: clear Cor: reg A&R * As documented in our note above that I updated at the time of this writing * Difficult management due to symptoms for which no specific cause has been found, so far * Stopping BP meds has not helped symptoms and has resulted in hypertension. We will resume antihtn therapy * I spoke with her and answered her questions SHELLEY CHARLES November 12, 2016 15:26 TERRI NOGUEIRA MD [facility] November 12, 2016 17:11
--- NOTE | 2016-11-12 16:04 | Physical Therapy Evaluation ---
PT Evaluation-General Medical Diagnosis Admission Date November 12, 2016 at 09:55 Medical Diagnosis: weakness Onset Date: November 12, 2016 Therapy Diagnosis Therapy Diagnosis: impaired mobility, dizziness Height/Weight Height (Feet): 5 Height (Inches): 5.00 Weight (Pounds): 150 Weight (Ounces): 0.0 Precautions Precautions/Isolations: Fall Prevention, Standard Precautions Referral Physician: Keegan Foss MD Reason for Referral: Evaluation/Treatment Medical History Pertinent Medical History: CAD, GERD, HTN, Hypothroidism Additional Medical History chronic back pain, hyperlipidemia, DJD, osteoporosis, chronic weakness and lack of stamina, fall 2011 -> left hip surgery, carotid arterial disease, surg ( cardiac stent, angioplasty, TKR 2014) Current History patient went to ER with dizziness and symptoms of postural hypotension Reviewed History: Yes Social History Home: Single Level Current Living Status: Alone Entry Into Home: Stairs Without Railing PT Steps Into Home: 1 Prior/Core FIM Prior Level of Function Functional [place] Measure 0=Not Assessed/NA 4=Minimal Assistance 1=Total Assistance 5=Supervision or Setup 2=Maximal Assistance 6=Modified Cana 3=Moderate Assistance 7=Complete Cana Bed Mobility: 6 Transfers (B,C,W/C) (FIM): 6 Gait: 6 Patient uses a single point cane and hold onto furniture in her home. PT Evaluation-Current Subjective Patient in bed sleeping pre tx, agrees to PT, has no complaints of pain. Pt/Family Goals to be independent at home Objective Patient Orientation: Person, Place, Situation ROM/Strength ROM Lower Extremities WNL Strenght Lower Extremities 4+-5/5 gross bilateral lower extremities Neuromuscular (Tone, Coordination, Reflexes) peripheral vision normal , normal tracking Sensory Vision: Functional Hearing: Impaired Sensation Right Lower Extremit: Intact Sensation Left Lower Extremity: Intact Transfers Functional Cana Measure 0=Not Assessed/NA 4=Minimal Assistance 1=Total Assistance 5=Supervision or Setup 2=Maximal Assistance 6=Modified Cana 3=Moderate Assistance 7=Complete [place] Transfers (B, C, W/C) (FIM): 4 Scootin Rollin Supine to/from Sit: 5 Sit to/from Stand: 4 Patient was able to sit from lying down without assist, she needed CGA when standing due to unsteadiness. Patient sat at the edge of the bed and her BP was 178/78, standing was 115/59 and it stayed that low when standing. After a few minutes patient wanted to lay back down because she was very fatigued/tired. Balance Sitting Static: Fair Sitting Dynamic: Fair Standing Static: Poor Standing Dynamic: Poor Assessment/Needs Impaired mobility, endurance, dizziness Rehab Potential: Fair PT Skilled Nursing Goals Skilled Nursing Goals PT Skilled Nursing Goals Time Frame: Nov 19, 2016 Transfers (B,C,W/C) (FIM): 5 Gait (FIM): 2 Distance: 50' Gait Level of Assist: 4 Gait Assistive Device: FWW PT Plan Problem List Problem List: Activity Tolerance, Functional Strength, Safety, Balance, Gait, Transfer, Bed Mobility Treatment/Plan Treatment Plan: Continue Plan of Care Treatment Plan: Bed Mobility, Education, Functional Activity Dean, Functional Strength, Gait, Safety, Therapeutic Exercise, Transfers Treatment Duration: Nov 19, 2016 # of days/week 5-6 Visits Per Week: 5-6 Minutes/Day (M-F): 15-30 Minutes/Day (Sat/Cobb): 15-30 Pt/Family Agrees w/Plan: Yes Safety Risks/Education Patient Education: Transfer Techniques, Correct Positioning, Safety Issues Teaching Recipient: Patient Teaching Methods: Demonstration, Discussion Response to Teaching: Reinforcement Needed Discharge Recommendations Plan Patient will perform bed mobility and transfer training, balance and endurance training, functional strengthening, stair training, gait training, and education to improve functional mobility and independence at home Therapy D/C Recommendations: Home w/ Family Support Time/GCodes Time In: 1535 Time Out: 1555 Total Billed Treatment Time: 20 Total Billed Treatment 1 visit EVL 20' G Codes Necessary: Yes PT/OT Therapy GCodes Therapy Functional Limitation: Physical Therapy Test(s)/Tool used to determine: Level of Assistance Scale Functional Limitation-Current Charge Code: MOBCUR Modifier: CJ Functional Limitation-Goal Charge Code: MOBGOAL Modifier: DANIELLE MARTINEZ PT November 12, 2016 16:04
[2016-11-13 00:14] VITALS: BP 146/65
[2016-11-13 04:08] VITALS: BP 148/70
[2016-11-13] MEDS: CATHETER FLUSH 10 ML SYR IV SCH ×2 (05:34→14:09)
[2016-11-13 05:47] LABS: CALCIUM 9.2 MG/DL (8.5-10.1); CREATININE SERUM 0.93 MG/DL (0.60-1.30); MAGNESIUM 2.4 MG/DL (1.8-2.4); POTASSIUM 4.4 MMOL/L (3.6-5.0)
[2016-11-13 06:08] LABS: THYROID STIMULATING HORMONE 1.59 UIU/ML (0.35-4.94)
[2016-11-13 08:00] VITALS: BP 136/63
[2016-11-13] MEDS ORDERED: FAMOTIDINE 20 MG (PEPCID) TABLET PO SCH (09:00)
[2016-11-13] MEDS ORDERED: OLMESARTAN 20 MG (BENICAR) TABLET PO SCH (09:00)
[2016-11-13] MEDS ORDERED: amLODIPine 10 MG (NORVASC) TAB PO SCH (09:00)
[2016-11-13] MEDS ORDERED: OLME20TA22 PO (09:14)
--- NOTE | 2016-11-13 09:20 | Progress Note-Cardiology ---
Cardiology SOAP Progress Note Subjective: No new symptoms Has chronic malaise and tiredness and dizziness No palp or syncope or cp or shortness of breath at rest Objective: I&O/Vital Signs Vital Sign - Last 12Hours 11/13/16 11/13/16 11/13/16 11/13/16 00:14 01:00 04:08 08:00 Temp 98.7 99.0 99.5 Pulse 50 54 56 56 Resp 20 20 16 B/P (MAP) 146/65 148/70 136/63 Pulse Ox 93 94 96 Intake and Output 11/13/16 00:00 Intake Total 650 ml Output Total 2175 ml Balance -1525 ml Weight (Pounds): 152 Weight (Ounces): 6.0 Weight (Calculated Kilograms): 69.731805 Constitutional: appears stated age, No apparent distress, well-developed, well- nourished Respiratory: No accessory muscle use, No respiratory distress, chest expansion is symmetric, chest is bilaterally symmetric, lungs clear to auscultation Cardiovascular: regular rate-rhythm, No JVD, S1 and S2 Gastrointestional: No tender, soft, audible bowel sounds, No spleenomegaly Extremities: No clubbing, No cyanosis, No significant edema Neurologic/Psychiatric: alert, oriented x 3, power is 5/5 both on sides Skin: No rash, No ulcerations Results/Procedures: Labs Laboratory Tests 11/12/16 09:45: Urine Color YELLOW, Urine Clarity CLEAR, Urine pH 8, Urine Specific [place] 1.015L, Urine Protein NEGATIVE, Urine Glucose (UA) NEGATIVE, Urine Ketones NEGATIVE, Urine Nitrite NEGATIVE, Urine Bilirubin NEGATIVE, Urine Urobilinogen NORMAL, Urine Leukocyte Esterase NEGATIVE, Urine RBC (Auto) 2+H, Urine RBC 0-2, Urine WBC RARE, Urine Squamous Epithelial Cells 0-2, Urine Crystals NONE, Urine Bacteria TRACE, Urine Casts NONE, Urine Mucus NEGATIVE, Urine Culture Indicated NO 11/13/16 05:15: Sodium Level 136, Potassium Level 4.4, Chloride Level 103, Carbon Dioxide Level 21, Anion Gap 12, Blood Urea Nitrogen 20H, Creatinine 0.93, Estimat Glomerular Filtration Rate 57, BUN/Creatinine Ratio 22, Glucose Level 123H, Calcium Level 9.2, Magnesium Level 2.4, Thyroid Stimulating Hormone (TSH) 1.59 Laboratory Tests 11/12/16 06:52 11/13/16 05:15 A/P: Assessment: Weakness, malaise and dizziness of undetermined etiology MRI brain on 11/12/16: chronic microvascular changes, no acute findings H/o near-syncope of undetermined etiology: no evidence of significant arrhythmia , so far, on ILR monitoring Carotid u/s of 06-24-16 showed bilateral mild to moderate dz Chronic generalized fatigue and malaise that improved after reduction in benzodiazepines Chronic lower back discomfort. Previous episode of syncope likely due to postural hypotension, had improved with reduction in her medications. Coronary artery disease with history of stenting of the ostial and proximal right coronary artery and stenting of the left circumflex obtuse marginal. Last cardiac catheterization was carried on January 31, 2014. It showed moderate CAD. Widely patent stents in the left CX, OM system. Patent stent in the ostial and proximal RCA lorie mild in stent restenosis. There is a patent stent in the mid RCA. The distal RCA has 40-50% stenosis, this is hemodynamically not significant. A small caliber PDA branch is occluded at its ostium. LVEF 55 %. Her prior history is that she underwent stenting of the ostial and proximal right coronary with Promus 3 x 15-mm stent in October 2010 and stenting of the mid right coronary with Promus 3 x 18-,mm stent in October 2010. In mid November 2010, she underwent percutaneous intervention to the left circumflex with Promus 2.5 x 23-mm and 2.75 x 28-mm stents to an obtuse marginal. In April 2011, she underwent balloon angioplasty for stent restenosis of the ostial right coronary. Normal global left ventricular systolic function with an ejection fraction of 50 % and normal left ventricular end-diastolic pressure per cardiac catheterization of December 2011. Echo of 09/18/14 showed LVEF 55-60%, diastolic dysfunction of LV and PASP 30-35 mmHg Hypertension, labile. Hyperlipidemia, but the patient is intolerant to statins. Chronic severe gastroesophageal reflux. Hypothyroidism being treated with thyroid replacement therapy. Degenerative joint disease. S/p TKR in September 2014 Osteoporosis. Chronic back pain. Chronic weakness and lack of stamina. Multiple medication intolerances. History of a fall in February 2012, leading to left hip surgery. Right shoulder surgery per Dr. Rivero in September 2012 H/o hypothyroidism treated with Synthroid by Dr Ponce. Blood work of Mar 2013 shows mild hyperthyroidism Hyponatremia, diagnosed on blood work of 10/18/[address] Ponce, being managed by Dr Ponce. No hyponatremia on blood work of 03/20/15 Plan: No clear CV etiology for dizziness Did have htn following d/c Benicar. We are resuming that Outpt f/u advised for next week RONNIE AGUILAR MD FACP FACC CCDS Nov 13, 2016 09:20
[2016-11-13] MEDS ORDERED: FLUTICASONE NASAL SPRAY (FLONASE) 16 GM BTL NS PRN (09:30)
[2016-11-13] MEDS ORDERED: CYANOCOBALAMIN INJ 1000 MCG/ML IJ SCH (09:30)
[2016-11-13] MEDS ORDERED: NITROGLYCERIN SUBLINGUAL 0.4 MG TAB (NITROSTAT) SL SCH (09:30)
[2016-11-13] MEDS ORDERED: LEVOTHYROXINE 88 MCG (LEVOTHORID) TAB PO SCH (09:30)
[2016-11-13] MEDS ORDERED: RT-ALBUTEROL SULF 2.5 MG/3 ML PRE-MIX VIAL IH PRN (09:30)
--- NOTE | 2016-11-13 09:54 | Physical Therapy Daily Note ---
PT Daily Note-Current Subjective Patient states she is going home but agrees to PT. Pain Numeric Pain Scale: 0-No Pain Location: No Pain Reported Mental Status Patient Orientation: Normal For Age Transfers Functional Routt Measure 0=Not Assessed/NA 4=Minimal Assistance 1=Total Assistance 5=Supervision or Setup 2=Maximal Assistance 6=Modified Routt 3=Moderate Assistance 7=Complete IndependenceIRFPAI Quality Coding Scale 6 Independent with activity with or without an assistive device 5 Patient requires set up or clean up by helper. Patient completes activity by themselves 4 Supervision or touching assist (CGA). [place] provide cues , steadying assist 3 The helper provides less than half the effort to complete the activity 2 The helper provides more than half the effort to complete the activity 1 Dependent. The helper does all the effort to complete an activity 7 Patient refused to complete or attempt activity 9 The patient did not perform the activity before the current illness or injury 88 Not attempted due to Medical conditions or safety concerns Transfers (B, C, W/C) (FIM): 7 Scootin Rollin Supine to/from Sit: 7 Sit to/from Stand: 7 Gait Training Gait (FIM): 1 Distance (FIM): 1=up to 49 ft Distance: 45' Gait Level of Assist: 6 Gait Assistive Device: Cane Maria Antonia Parker will utilize FWW at son's home upon dismissal for safety Assessment Patient is currently at [facility] with gross motor skills and will dismiss to son's home on this date. Patient has no c/o or concerns at this time. PT [facility] Goals [place] Driving Goals PT [place] [employer] Goals Time Frame: Nov 19, 2016 Transfers (B,C,W/C) (FIM): 5 Gait (FIM): 2 Distance: 50' Gait Level of Assist: 4 Gait Assistive Device: FWW PT Plan Treatment/Plan Treatment Plan: Discontinue PT Treatment Plan: Bed Mobility, Education, Functional Activity Dean, Functional Strength, Gait, Safety, Therapeutic Exercise, Transfers Treatment Duration: Nov 19, 2016 Visits Per Week: 5-6 Minutes/Day (M-F): 15-30 Minutes/Day (Sat/Cobb): 15-30 Time/GCodes Time In: 923 Time Out: 933 Total Billed Treatment Time: 10 Total Billed Treatment 1 visit FA 10 min G Codes Necessary: Yes PT/OT Therapy GCodes Therapy Functional Limitation: Physical Therapy Test(s)/Tool used to determine: Level of Assistance Scale Functional Limitation-Current Charge Code: MOBCUR Modifier: CJ Functional Limitation-Goal Charge Code: MOBGOAL Modifier: CI Functional Limitation-D/C Charge Codes: MOBDC Modifier: CI ISHMAEL KING PT Nov 13, 2016 09:54
[2016-11-13] MEDS ORDERED: NITROGLYCERIN SUBLINGUAL 0.4 MG TAB (NITROSTAT) SL PRN (10:45)
--- NOTE | 2016-11-13 10:50 | Short Stay Summary-Hospitalist ---
HPI History of Present Illness: HPI/Chief Complaint CC: Dizziness HPI: This is a clinic pt of mine for 12 yrs who has a hx of chronic dizziness and CAD. She presented to the ER with dizziness; all work up was normal and she was placed on observation. MRI of brain showed no stroke and cardiology approved DC. Patient Interview: Pt states that she has just gotten out of the shower and is still feeling funny. Pt feels that she is able to DC today. Pt will stay with family upon DC. Pt stated that Dr. Nogueira saw the pt today and discussed the MRI of the brain. Pt is concerned about what caused her dizziness. Pt was reminded that she has a hx of dizziness and her BP may have caused some of this. Physical exam stable. Pt confirmed [facility] as Pharmacy Pt asked about restarting her home meds, she was informed that they will be reviewed soon. Scribed by Naina Ashraf under the direct supervision of Dr. Lennon. Source: patient Exam Limitations: no limitations Date Seen 11/13/16 Attending Physician Keegan Foss MD PCP Sravanthi Lennon DO Referring Physician Date of Admission November 12, 2016 at 09:55 Home Medications & Allergies Home Medications Reviewed patient Home Medication Reconciliation Form Allergies Allergies Coded Allergies Cedfmfh-Ruf-Zuh Reductase Inhibitor (Verified Allergy, Unknown, 01/30/14) alendronate sodium (Verified Allergy, Unknown, 01/30/14) ezetimibe (Verified Allergy, Unknown, 01/30/14) hydrochlorothiazide (Verified Allergy, Unknown, 01/30/14) Past Ffvhuqb-Efeljx-Hzovmz Hx Patient Social History Marrital Status: Employed/Student: retired Alcohol Use: Denies Use Recreational Drug Use: No Smoking Status: Never a Smoker Physical Abuse Screen: No Sexual Abuse: No Recent Foreign Travel: No Contact w/other who traveled: No Recent Hopitalizations: No Recent Infectious Disease Expo: No Immunizations Up To Date Date of Pneumonia Vaccine: Feb 13, 2010 Date of Influenza Vaccine: Mar 15, 2012 Seasonal Allergies Seasonal Allergies: No Surgeries HX Surgeries: Yes (STENTS) Surgeries: Joint Replacement Respiratory Hx Respiratory Disorders: Yes (sob) Cardiovascular Hx Cardiovascular Disorders: Yes Cardiac Disorders: High Cholesterol, Hypertension Neurological Hx Neurological Disorders: No Reproductive System Hx Reproductive Disorders: No Genitourinary Hx Genitourinary Disorders: No Gastrointestinal Hx Gastrointestinal Disorders: Yes Gastrointestinal Disorders: Gastroesophageal Reflux Musculoskeletal Hx Musculoskeletal Disorders: Yes Musculoskeletal Disorders: Arthritis Endocrine Hx Endocrine Disorders: Yes Endocrine Disorders: Hyperthyroidism HEENT HX ENT Disorders: Yes Hearing Impairment: Bilateral Hearing Aide Cancer Hx Cancer: No Psychosocial Hx Psychiatric Problems: Yes Behavioral Health Disorders: Anxiety Integumentary HX Skin/Integumentary Disorder: No Blood Transfusions Hx Blood Disorders: No Review of Systems Constitutional: see HPI, weakness EENTM: no symptoms reported Respiratory: no symptoms reported Cardiovascular: no symptoms reported Gastrointestinal: no symptoms reported Genitourinary: no symptoms reported Musculoskeletal: no symptoms reported Skin: no symptoms reported Psychiatric/Neurological: Other (dizziness) Physical Exam Physical Exam Vital Signs Vital Sign - Last 12Hours 11/12/16 06:48 Temp 97.2 Pulse 53 Resp 16 B/P (MAP) 193/93 Pulse Ox 96 O2 Delivery Room Air Capillary Refill : Less Than 3 Seconds General Appearance: No Apparent Distress, WD/WN, Chronically ill Eyes: Bilateral Eye Normal Inspection, Bilateral Eye PERRL HEENT: PERRL/EOMI, Normal ENT Inspection, Pharynx Normal Neck: Full Range of Motion, Normal Inspection, Non Tender, Supple, Carotid Bruit Respiratory: Chest Non Tender, Lungs Clear, Normal Breath Sounds, No Accessory Muscle Use, No Respiratory Distress Cardiovascular: Regular Rate, Rhythm, No Edema, No Gallop, No JVD, No Murmur, Normal Peripheral Pulses Gastrointestinal: Normal Bowel Sounds, No Organomegaly, No Pulsatile Mass, Non Tender, Soft Back: Normal Inspection, No CVA Tenderness, No Vertebral Tenderness Extremity: Normal Capillary Refill, Normal Inspection, Normal Range of Motion, Non Tender, No Calf Tenderness, No Pedal Edema Neurologic/Psychiatric: Alert, Oriented x3, No Motor/Sensory Deficits, Normal Mood/Affect Skin: Normal Color, Warm/Dry Lymphatic: No Adenopathy Results Results/Procedures Lab Laboratory Tests 11/12/16 06:52 11/13/16 05:15 Short Stay Diagnosis Discharge Diagnosis-Short Stay Admission Diagnosis Assessment: Acute on chronic dizziness with history of falls and hip fractures Severe coronary artery disease previous stents placed managed by Dr. Nogueira Hyperlipidemia intolerant to statins Generalized anxiety dependent on benzodiazepine use in unsuccessful in weaning off in the past Osteoporosis Vitamin B-12 deficiency GERD Irritable bowel syndrome Chronic constipation Hypertension labile Final Discharge Diagnosis Assessment: Acute on chronic dizziness with history of falls and hip fractures Severe coronary artery disease previous stents placed managed by Dr. 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
[2016-11-13] MEDS ORDERED: ASPIRIN E.C. 81 MG (ECOTRIN) TAB PO SCH (12:00)
[2016-11-13 19:59] VITALS: BP 136/63
[2016-11-13] MEDS ORDERED: ALPRAZolam 0.5 MG (XANAX) TAB PO SCH (21:00)
[2016-11-13] MEDS ORDERED: PANTOPRAZOLE 40 MG (PROTONIX) TAB PO SCH (21:00)
[2016-11-14] MEDS ORDERED: LEVOTHYROXINE 100 MCG (LEVOTHROID) TAB PO SCH (09:30)
== END 2016-11-13 10:20 | disposition home or self-care (01) ==
LOC: EDUNIT# 06:46 → ER 06:48 → UNDOADMOB 09:55 → 4TH 09:55
PROVIDERS: ADMIT Internal Medicine; ATTEND Internal Medicine
DX: R42 Dizziness and giddiness (principal); R53.1 Weakness; R53.81 Other malaise; I25.10 Atherosclerotic heart disease of native coronary artery without angina pectoris; E78.5 Hyperlipidemia, unspecified; F41.1 Generalized anxiety disorder; M81.0 Age-related osteoporosis without current pathological fracture; E53.8 Deficiency of other specified B group vitamins; K21.9 Gastro-esophageal reflux disease without esophagitis; K58.1 Irritable bowel syndrome with constipation; I10 Essential (primary) hypertension; I65.23 Occlusion and stenosis of bilateral carotid arteries; E03.9 Hypothyroidism, unspecified; M54.9 Dorsalgia, unspecified; E05.90 Thyrotoxicosis, unspecified without thyrotoxic crisis or storm; Z95.5 Presence of coronary angioplasty implant and graft
CPT/HCPCS: 36415; 70450; 70553; 71010; 80048; 80053; 81000; 83735; 84443; 84484; 85025; 93041; G0378